=== PATIENT | female | born 1985 | race Caucasian/White ===

== ENCOUNTER 2022-11-23 11:52 | Outpatient (RCR) | payer BC, MEDICAID, SELFPAY ==
--- NOTE | 2022-11-23 12:15 | PC.NURSE ---
Pt originally scheduled for of this week but called stating she couldn't flush right Anu catheter. Pt scheduled for today to assess vascular access device. When patient arrived, both ports able to be flushed with saline. There was some resistance at first, but then flushed with no resistance. Labs drawn as ordered. Dressing changed to right Anu catheter. Teaching provided regarding proper technique to flush catheter. Pt verbalized understanding.
[2022-11-23 12:30] VITALS: BP 130/92; PULSE 105; RESP 18; TEMP 36.7; O2SAT 99
[2022-11-23 12:39] LABS: Basophils % 0.7 %; Eosinophils # 0.1 10^3/uL (0.0-0.8); Eosinophils % 1.8 %; Hematocrit 30.5 % (37.0-47.0); Hemoglobin 9.9 g/dL (11.5-15.3); Lymphocytes # 0.3 10^3/uL (0.8-4.8); Lymphocytes % 12.1 %; Mean Corpuscular HGB Conc 32.5 g/dL (30.0-36.0); Mean Corpuscular Hemoglobin 29.5 pg (28.0-34.0); Mean Corpuscular Volume 90.8 fl (81-99); Mean Platelet Volume 8.5 fL (7.4-10.4); Monocytes # 0.3 10^3/uL (0.2-0.9); Monocytes % 11.4 %; Neutrophils # 2.05 10^3/uL (1.8-7.7); Neutrophils % 73.3 %; Nucleated Red Blood Cells % 0 %; Platelet Count 308 10^3/cmm (130-400); Red Blood Count 3.36 10^6/uL (4.1-5.3); Red Cell Distribution Width 15.9 % (12.1-15.1); White Blood Count 2.8 10^3/uL (4.0-10.0)
[2022-11-23 12:56] VITALS: BMI 27.7
[2022-11-23 12:56] LABS: Alanine Aminotransferase < 5 U/L (0-33); Albumin Level 3.8 g/dL (3.5-5.2); Alkaline Phosphatase 85 U/L (35-105); Anion Gap 15.5 (5-19); Aspartate Amino Transferase 12 U/L (0-32); Blood Urea Nitrogen 13 mg/dL (6-20); Calcium 9.2 mg/dL (8.5-10.5); Carbon Dioxide 25 mmol/L (22-29); Chloride 99 mmol/L (98-107); Globulin 3.4 g/dL (1.3-4.6); Glomerular Filtration Rate 178.6 mL/min (90-130); Glucose 130 mg/dL (65-115); Osmolality Calculated 284 mOsm/kg (285-295); Potassium 3.5 mmol/L (3.5-5.1); Sodium 136 mmol/L (136-145); Total Bilirubin 0.2 mg/dL (0.15-1.2); Total Protein 7.2 g/dL (6.6-8.7)
== END 2022-11-28 23:59 | disposition home or self-care (01) ==
LOC: GILAB 11:52
PROVIDERS: Nurse Practitioner; PCP Nurse Practitioner; Visit Provider Internal Medicine Infectious Disease
DX: A41.9 Sepsis, unspecified organism (principal)
CPT/HCPCS: 36592; 80053; 85025

== ENCOUNTER 2022-12-07 09:07 | Outpatient (RCR) | payer BC, MEDICAID, SELFPAY ==
--- NOTE | 2022-12-03 14:10 | PC.NURSE ---
Pt was due on Tuesday of this week to have Anu cath dressing change and lab draw. Pt stated last week she would call for appointment this week because she relies on others for transportation. This nurse called patient and asked if patient could come in today. Pt stated she could make a 1300 appointment. Pt did not attend appointment. Patient not answering phone at this time. Will attempt Tuesday to schedule appointment.
[2022-12-07 09:10] VITALS: BP 146/94; PULSE 96; RESP 18; TEMP 36.2; O2SAT 98
[2022-12-07 09:27] LABS: Basophils % 0.7 %; Eosinophils # 0.1 10^3/uL (0.0-0.8); Eosinophils % 2.6 %; Hematocrit 33.3 % (37.0-47.0); Hemoglobin 10.7 g/dL (11.5-15.3); Lymphocytes # 0.5 10^3/uL (0.8-4.8); Lymphocytes % 15.6 %; Mean Corpuscular HGB Conc 32.1 g/dL (30.0-36.0); Mean Corpuscular Hemoglobin 29.7 pg (28.0-34.0); Mean Corpuscular Volume 92.5 fl (81-99); Mean Platelet Volume 8.4 fL (7.4-10.4); Monocytes # 0.4 10^3/uL (0.2-0.9); Monocytes % 12.3 %; Neutrophils # 2.06 10^3/uL (1.8-7.7); Neutrophils % 68.1 %; Nucleated Red Blood Cells % 0 %; Platelet Count 261 10^3/cmm (130-400); Red Cell Distribution Width 17.1 % (12.1-15.1)
--- NOTE | 2022-12-07 09:40 | PC.NURSE ---
Pt to GI infusions for dressing change to right Anu catheter and lab draw. Pt missed last week dressing change and lab draw due to not having transportation. Pt states the dressing was coming off the Anu catheter and she changed the dressing. Sterile dressing change performed today. Cath insertion site clear without redness, drainage, or complication noted. Sutures in place securing line. Labs drawn and results faxed to [facility] as requested.
[2022-12-07 10:02] LABS: Alanine Aminotransferase < 5 U/L (0-33); Alkaline Phosphatase 94 U/L (35-105); Aspartate Amino Transferase 14 U/L (0-32); Blood Urea Nitrogen 12 mg/dL (6-20); Calcium 8.9 mg/dL (8.5-10.5); Carbon Dioxide 26 mmol/L (22-29); Chloride 103 mmol/L (98-107); Globulin 2.7 g/dL (1.3-4.6); Glomerular Filtration Rate 138.1 mL/min (90-130); Glucose 87 mg/dL (65-115); Osmolality Calculated 285 mOsm/kg (285-295); Sodium 138 mmol/L (136-145); Total Bilirubin 0.2 mg/dL (0.15-1.2); Total Protein 6.7 g/dL (6.6-8.7)
== END 2022-12-29 23:59 | disposition home or self-care (01) ==
LOC: GILAB 09:07
PROVIDERS: PCP Nurse Practitioner; Visit Provider Internal Medicine Infectious Disease
DX: A41.9 Sepsis, unspecified organism (principal)
CPT/HCPCS: 36592; 80053; 85025